=== PATIENT | male | born 1995 | race Caucasian/White ===

== ENCOUNTER 2021-07-11 17:29 | Emergency (ER) | payer OTHER ==
[~2021-07-11 17:29] MED LIST: ALBUTEROL0.09 MG/A4 IH
[2021-07-11 18:13] LABS: BASO # 0.03 (0.02-0.10); EOS # 0.02 (0.04-0.40); EOS % 0.1 % (0.0-4.0); HEMATOCRIT 52.7 % (42.0-52.0); HEMOGLOBIN 18.1 g/dL (13.5-18.0); LYMPH# 0.78 (1.50-4.00); MEAN CELL VOLUME 90 fl (78-100); MEAN CORPUSCULAR HEMOGLOBIN 31 pg (27-31); MEAN CORPUSCULAR HGB CONC 34 g/dL (33-37); MEAN PLATELET VOLUME 10.7 fl (7.4-10.4); MONO # 0.77 (0.20-0.80); NEU # 12.13 (1.40-6.50); PLATELET COUNT 271 K/mm3 (130-400); RED BLOOD COUNT 5.87 M/mm3 (4.20-5.60); WHITE BLOOD COUNT 13.8 K/mm3 (4.8-10.8)
[2021-07-11 18:32] LABS: ALBUMIN 5.4 g/dL (3.5-5.0); POTASSIUM 3.7 mmol/L (3.5-5.1)
[2021-07-11 18:33] LABS: CALCIUM 10.8 mg/dL (8.3-10.5)
[2021-07-11 18:35] LABS: TOTAL PROTEIN 9.2 g/dL (6.4-8.3)
[2021-07-11 18:37] LABS: TOTAL BILIRUBIN 0.6 mg/dL (0.2-1.2)
[2021-07-11 18:49] LABS: D-DIMER 0.16 mg/L FEU (0.15-0.50)
[2021-07-11] MEDS ORDERED: ONDANSETRON ODT8 MG PO (21:40)
[2021-07-11] MEDS ORDERED: VIBRAMYCIN HYC100 MG PO (21:42)
[2021-07-11] MEDS ORDERED: DECADRON6 M1 PO (21:42)
[2021-07-11] MEDS ORDERED: PROVENTIL0.09 MG/A1 IH (21:42)
[2021-07-11 22:11] VITALS: BP 114/72
== END 2021-07-11 22:16 | disposition home or self-care (01) ==
LOC: ED 17:29
PROVIDERS: Nurse Practitioner Family
DX: U07.1 COVID-19 (principal); J45.909 Unspecified asthma, uncomplicated
CPT/HCPCS: J0696; J1100; J1885; J2405; J7030